=== PATIENT | female | born 1940 | race Caucasian/White ===

== ENCOUNTER → 2020-03-10 08:06 | Outpatient (CLI) | payer MEDICARE, SELFPAY ==
[2020-03-10 08:48] LABS: Add Manual Diff / Slide Review NO; Basophils Absolute Auto 100 /uL (0-100); Basophils Percent Auto 1.2 % (0-2); Eosinophils Absolute Auto 200 /uL (0-450); Hematocrit 38.6 % (36-46); Hemoglobin 13.1 g/dL (12.0-16.0); Lymphocytes Absolute Auto 2000 /uL (1100-4500); Lymphocytes Percent Auto 37.1 % (25-40); Mean Corpuscular HGB Conc 33.9 % (30-36); Mean Corpuscular Hemoglobin 32.4 PG (26-34); Mean Corpuscular Volume 95.7 fL (80-100); Monocytes Absolute Auto 400 /uL (0-900); Monocytes Percent Auto 7.8 % (3-14); Neutrophils Absolute Auto 2700 /uL (1500-7000); Neutrophils Percent Auto 50.9 % (50-75); Platelet Count 220 X10^3/uL (150-400); Red Blood Cell Count 4.03 X10^6/uL (4.0-5.2); Red Cell Distribution Width 13.3 % (11.6-14.8); White Blood Cell Count 5.4 X10^3/uL (4.5-11.0)
[2020-03-10 09:16] LABS: Alanine Aminotransferase 12 IU/L (<35); Albumin 4.3 g/dL (3.5-5.0); Albumin Globulin Ratio 1.4 (1.0-2.8); Alkaline Phosphatase 62 U/L (38-126); Aspartate Aminotransferase 24 IU/L (14-36); BUN Creatinine Ratio 15.5 (6-22); Bilirubin Total 0.6 mg/dL (0.2-1.3); Blood Urea Nitrogen 15 mg/dL (7-17); Calcium 9.6 mg/dL (8.4-10.2); Carbon Dioxide 24 mmol/L (22-32); Chloride 100 mmol/L (98-107); Cholesterol 271 mg/dL (140-199); Estimated Glomerular Filt Rate 55.5 mL/min (>60); Glucose 96 mg/dL (80-110); HDL Cholesterol 47 mg/dL (40-60); HEMOLYSIS < 15 (0-50); LDL Cholesterol Calculated 206 mg/dL (<100); Potassium 4.4 mmol/L (3.4-5.1); Sodium 132 mmol/L (137-145); Total Protein 7.3 g/dL (6.3-8.2); Triglycerides 92 mg/dL (35-150)
[2020-03-10 09:35] LABS: Free T3, Triiodothyronine Free 2.89 pg/mL (2.77-5.27); Free T4, Direct Thyroxine 1.62 ng/dL (0.78-2.19)
[2020-03-10 09:49] LABS: Thyroid Stimulating Hormone 0.761 uIU/mL (0.47-4.68)
== END ==
PROVIDERS: Family Provider Family Medicine; PCP Family Medicine; Referring Provider Family Medicine; Visit Provider Family Medicine
DX: E03.9 Hypothyroidism, unspecified (principal); E78.5 Hyperlipidemia, unspecified; I10 Essential (primary) hypertension
CPT/HCPCS: 36415; 80053; 80061; 84439; 84443; 84481; 85025

== ENCOUNTER → 2021-01-05 07:21 | Outpatient (CLI) | payer MEDICARE, SELFPAY ==
[2021-01-05 08:40] LABS: Alanine Aminotransferase 18 IU/L (<35); Albumin 4.1 g/dL (3.5-5.0); Albumin Globulin Ratio 1.3 (1.0-2.8); Alkaline Phosphatase 64 U/L (38-126); Aspartate Aminotransferase 28 IU/L (14-36); BUN Creatinine Ratio 15.3 (6-22); Bilirubin Total 0.5 mg/dL (0.2-1.3); Blood Urea Nitrogen 13 mg/dL (7-17); Calcium 9.6 mg/dL (8.4-10.2); Carbon Dioxide 23 mmol/L (22-32); Chloride 102 mmol/L (98-107); Cholesterol 194 mg/dL (140-199); Estimated Glomerular Filt Rate > 60.0 mL/min (>60); Globulin 3.2 g/dL (1.7-4.1); Glucose 103 mg/dL (80-110); HDL Cholesterol 51 mg/dL (40-60); HEMOLYSIS < 15 (0-50); LDL Cholesterol Calculated 125 mg/dL (<100); Potassium 4.3 mmol/L (3.4-5.1); Sodium 133 mmol/L (137-145); Total Protein 7.3 g/dL (6.3-8.2); Triglycerides 89 mg/dL (35-150)
[2021-01-05 09:21] LABS: TSH w/ Reflex to FT4 1.56 uIU/mL (0.47-4.68)
== END ==
PROVIDERS: Family Provider Family Medicine; PCP Family Medicine; Referring Provider Family Medicine; Visit Provider Family Medicine
DX: E03.9 Hypothyroidism, unspecified (principal); E78.5 Hyperlipidemia, unspecified; I10 Essential (primary) hypertension
CPT/HCPCS: 36415; 80053; 80061; 84443

== ENCOUNTER → 2021-03-02 14:53 | Outpatient (CLI) | payer MEDICARE, SELFPAY ==
--- NOTE | 2021-03-02 14:54 | DI.ECHO.S_ITS ---
[facility] +---------+ : : [address] : : : : [id number] : : : : Phone: [phone]+ Echocardiogram Report + + :Name: ABBEY GAGNON Study Date: 03/02/2021 Height: 63.5 in: :[facility] ReadingLocation: Weight: 155 lb : : Gender: Female BSA: 1.7 m2 : :: 1940 Age: 81 yrs BP: 120/80 mmHg: :Reason For Study: MURMUR : :Ordering Physician: YONY, : :ASHELY Performed By: Adali Ziegler : :Referring: ASHELY BHAKTA : + + Interpretation Summary 1) Normal left ventricular thickness, size, wall motion, and systolic function (EF 55-60%). 2) Normal right ventricular size and function. 3) There is mild aortic stenosis (valve area 12mmHg, valve area 1.8cm2). 4) Compared to the Echo done 03/13/2013, mild aortic stenosis is present on this study. Procedure: A two-dimensional transthoracic echocardiogram with color flow and Doppler was performed. The study quality was technically adequate. Comparison is made with the echocardiogram of 03/13/2013. The patient was in sinus rhythm with heart rates between 62-70 bpm during the exam. Left Ventricle: The left ventricle is normal in size and wall thickness. The ejection fraction is estimated to be 55-60%. Diastolic parameters suggest probable normal left ventricular diastolic function and normal filling pressures. Right Ventricle: The right ventricle is normal in size and function. Atria: The left atrial size is normal. Right atrial size is normal. There is no Doppler evidence for an interatrial shunt. The atrial septum is aneurysmal. Mitral Valve: There is mild mitral annular calcification. The mitral valve leaflets appear borderline thickened, but open well. There is mild mitral regurgitation. Aortic Valve: The aortic valve is trileaflet. The aortic valve is mildly calcified. There is mild aortic stenosis. The peak aortic velocity is 2.4 m/sec. The aortic valve mean gradient is 12 mmHg. The calculated aortic valve area is 1.8 cm2. No aortic regurgitation is present. Tricuspid Valve: The tricuspid valve is normal in structure and function. There is mild tricuspid regurgitation. Pulmonary artery pressures cannot be estimated because of the lack of a measurable TR jet velocity but the IVC suggests a CVP of around 3 mmHg. Pulmonic Valve: The pulmonic valve leaflets are thin and pliable; valve motion is normal. There is no pulmonic valvular regurgitation. Great Vessels: The aortic root is normal size. The ascending aorta is at the upper limits of normal in size. The IVC is of normal diameter and collapses greater than 50% with a sniff. This suggests a low right atrial pressure of 3 mm Hg. Pericardium/ Pleura There is no pericardial effusion. There is no pleural effusion. MMode/2D Measurements & Calculations LVIDd: 5.0 cm LVOT diam: 2.4 cm LVIDs: 3.2 cm Ao root diam: 3.1 cm FS: 35.9 % asc Aorta Diam: 3.4 cm IVSd: 0.81 cm Ao Arch Diam (Prox Trans): 2.4 cm LVPWd: 0.92 cm LV iverson. diameter/BSA (cm/m^2): 2.9 LV sys. diameter/BSA (cm/m^2): 1.8 LA A2 area: 18.3 cm2 RA long axis: 4.8 cm LA A4 area: 14.1 cm2 RA area: 13.2 cm2 LA length (vol): 5.0 cm RA vol: 30.7 ml LA vol: 43.5 ml RA : 17.6 ml/m2 LA vol index: 24.9 ml/m2 IVC diam: 0.69 cm RVD1 (basal): 3.2 cm TAPSE: 2.1 cm Doppler Measurements & Calculations Ao V2 max: 239.4 cm/sec LVOT Max Nader: 100.1 cm/sec Ao V2 mean: 160.8 cm/sec LV V1 max P.0 mmHg Ao max P.9 mmHg LV V1 VTI: 22.7 cm Ao mean P.2 mmHg THERESA(I,D): 2.0 cm2 Ao V2 VTI: 50.6 cm THERESA(V,D): 1.8 cm2 sev ratio: 0.45 THERESA indexed to BSA (cm^2/m^2): 1.1 MV E max nader: 54.2 cm/sec PA V2 max: 102.5 cm/sec MV A max nader: 82.4 cm/sec PA V2 mean: 66.8 cm/sec MV E/A: 0.66 PA mean P.0 mmHg Med Peak E' Nader: 5.1 cm/sec PA pr(Accel): 34.5 mmHg E/E' med: 10.6 Lat Peak E' Nader: 8.6 cm/sec E/E' lat: 6.3 E/e' average: 8.4 MV dec time: 0.27 sec SV(OT): 100.0 ml Reading Physician:05:00 PM
== END ==
PROVIDERS: Family Provider Family Medicine; PCP Family Medicine; Referring Provider Family Medicine; Visit Provider Family Medicine
DX: I08.3 Combined rheumatic disorders of mitral, aortic and tricuspid valves (principal); R01.1 Cardiac murmur, unspecified
CPT/HCPCS: 93306

== ENCOUNTER → 2021-04-29 13:06 | Outpatient (CLI) | payer MEDICARE, SELFPAY ==
--- NOTE | 2021-04-29 | DI.MRI.S_ITS ---
PROCEDURE: MR KNEE RT WO CON INDICATIONS: Pain in right knee. No history of prior surgery. TECHNIQUE: Noncontrast sagittal PD fast spin echo and T2 fast spin echo with fat saturation, sagittal 3-D FLASH with fat saturation; coronal T1 spin echo and PD fast spin echo with fat saturation, and axial PD fast spin echo with fat saturation through the knee. COMPARISON: [facility], MR, KNEE RT W/O CONTRAST, 02/25/2010, 10:32. [facility], CR, XR KNEE 4+ VIEWS RIGHT, 12/16/2020, 14:56. FINDINGS: Image quality: Excellent. Menisci: There is linear horizontal high signal intensity within the anterior horn, body, and posterior horn medial meniscus, demonstrating inferior articular surface extension, indicating horizontal tearing. Lateral extrusion of the lateral meniscus is present. There is increased amorphous and linear oblique high signal intensity within the anterior horn, body, and posterior horn lateral meniscus, demonstrating inferior articular surface extension, indicating progressive complex tearing. Cruciate ligaments: The anterior and posterior cruciate ligaments appear intact. Medial structures: The medial collateral ligament appears intact. Visualized portions of the pes anserinus tendons appear normal. No abnormal bursal fluid. Lateral structures: The lateral collateral ligament demonstrates moderate T2 signal elevation at its femoral origin. The long and short heads of the biceps femoris tendon appear intact. The popliteus tendon appears normal. Iliotibial band appears normal. Anterior structures: The quadriceps and patellar tendons appear intact. Patellar alignment is normal. No femoral trochlear dysplasia or ventral trochlear prominence. No edema in the infrapatellar fat pad. Bones and cartilage: No bone marrow contusions or fractures. Moderate tricompartmental periarticular osteophyte formation is present. Moderate articular cartilage loss diffusely overlies the weight-bearing aspects of the medial femoral condyle and medial tibial plateau. Severe articular cartilage loss diffusely overlies the weight-bearing aspects of the lateral femoral condyle and lateral tibial plateau. Joint space: There is a moderate knee joint effusion and a trace Burger's cyst. There are multiple intra-articular loose bodies, largest of which is in the anterior central aspect of the knee joint, measuring roughly 30 mm transverse, as before. Normal appearing synovial plicae are incidentally noted. IMPRESSION: 1. Tricompartmental osteoarthritis with associated articular cartilage loss. 2. Medial and lateral meniscal tearing as described above. 3. Knee joint effusion and intra-articular loose bodies. Dominant synovial mass is present within the anterior central knee joint compartment, as before, consistent with synovitis. Differential considerations include rheumatoid arthritis, pigmented villonodular synovitis and synovial tumors. 4. Partial thickness lateral collateral ligament tear. Dictated by: Catrachita Parker M.D. on 04/29/2021 at 14:05 Approved by: Catrachita Parker M.D. on 04/29/2021 at 14:11
== END ==
PROVIDERS: Family Provider Family Medicine; PCP Family Medicine; Referring Provider Orthopaedic Surgery; Visit Provider Orthopaedic Surgery
DX: S83.281A Other tear of lateral meniscus, current injury, right knee, initial encounter (principal); S83.241A Other tear of medial meniscus, current injury, right knee, initial encounter; M25.561 Pain in right knee
CPT/HCPCS: 73721

== ENCOUNTER → 2021-05-31 13:50 | Outpatient (CLI) | payer MEDICARE, SELFPAY ==
[2021-05-31 14:37] LABS: Add Manual Diff / Slide Review NO; Basophils Absolute Auto 100 /uL (0-100); Eosinophils Absolute Auto 100 /uL (0-450); Eosinophils Percent Auto 1.9 % (2-4); Hematocrit 37.9 % (36-46); Hemoglobin 12.8 g/dL (12.0-16.0); Lymphocytes Absolute Auto 2000 /uL (1100-4500); Lymphocytes Percent Auto 29.6 % (25-40); Mean Corpuscular HGB Conc 33.7 % (30-36); Mean Corpuscular Hemoglobin 32.1 PG (26-34); Mean Corpuscular Volume 95.4 fL (80-100); Monocytes Absolute Auto 600 /uL (0-900); Monocytes Percent Auto 8.6 % (3-14); Neutrophils Absolute Auto 4100 /uL (1500-7000); Neutrophils Percent Auto 58.9 % (50-75); Platelet Count 249 X10^3/uL (150-400); Red Blood Cell Count 3.97 X10^6/uL (4.0-5.2); Red Cell Distribution Width 13.7 % (11.6-14.8); White Blood Cell Count 6.9 X10^3/uL (4.5-11.0)
[2021-05-31 15:07] LABS: BUN Creatinine Ratio 19.1 (6-22); Blood Urea Nitrogen 18 mg/dL (7-17); Calcium 9.5 mg/dL (8.4-10.2); Carbon Dioxide 25 mmol/L (22-32); Chloride 101 mmol/L (98-107); Estimated Glomerular Filt Rate 57.4 mL/min (>60); Glucose 80 mg/dL (80-110); HEMOLYSIS < 15 (0-50); Potassium 4.8 mmol/L (3.4-5.1); Sodium 136 mmol/L (137-145)
[2021-05-31 15:58] LABS: Appearance Urine UA SL CLOUDY; Bilirubin Urine UA NEGATIVE (NEGATIVE); Color Urine UA YELLOW; Glucose Urine UA NEGATIVE (Negative); Ketones Urine UA NEGATIVE (NEGATIVE); Leukocyte Esterase Urine UA 1+ (NEGATIVE); Nitrite Urine UA POSITIVE (Negative); Occult Blood Urine UA NEGATIVE (Negative); Protein Urine UA NEGATIVE (Negative); Urobilinogen Urine UA 0.2 E.U./dL (0.2); pH Urine UA 5.5 (4.5-8.0)
[2021-05-31 16:05] LABS: Amorphous Sediment Urine 1+; Bacteria Urine Many (>30); RBC Urine None Seen (0-5/HPF); Squamous Epithelial Cell Urine 1-5 /HPF (0-5/HPF); WBC Urine 10-30/HPF (0-5/HPF)
[2021-05-31 16:06] LABS: Culture Indicated Urine Specimen Cultured; Mucus Urine 1+ (Negative)
[2021-05-31 18:42] LABS: Hemoglobin A1C% w Est Avg Glu 5.2 % (4.0-6.0)
== END ==
PROVIDERS: Family Provider Family Medicine; PCP Family Medicine; Referring Provider Orthopaedic Surgery; Visit Provider Orthopaedic Surgery
DX: Z01.818 Encounter for other preprocedural examination (principal); R73.9 Hyperglycemia, unspecified; Z01.812 Encounter for preprocedural laboratory examination; N39.0 Urinary tract infection, site not specified
CPT/HCPCS: 36415; 80048; 81001; 83036; 85025; 87077; 87086; 87186; 93005

== ENCOUNTER → 2021-06-28 16:07 | Outpatient (CLI) | payer MEDICARE, SELFPAY ==
[2021-06-28 18:01] LABS: COVID19 -Nasal RAPID Negative (Negative)
== END ==
PROVIDERS: Family Provider Family Medicine; PCP Family Medicine; Visit Provider Nurse Practitioner Family
DX: Z20.822 Contact with and (suspected) exposure to COVID-19 (principal)
CPT/HCPCS: 87635

== ENCOUNTER 2021-06-29 11:49 | Day surgery (SDC) | payer MEDICARE, SELFPAY ==
[2021-06-21 13:37] VITALS: BMI 26.7
[2021-06-29] VITALS (14 sets, daily range): BP systolic 92–149; BP diastolic 47–80; PULSE 57–104; RESP 14–18; TEMP 36.2–37.1; O2SAT 96–100; BMI 26.7
[2021-06-29] MEDS: LACTATED RINGERS 1,000 ML 42 ML IV ×2 (13:12→14:13)
--- NOTE | 2021-06-29 13:14 | DI.RAD.S_ITS ---
PROCEDURE: XR KNEE RT 1TO2V INDICATIONS: postop prosthesis placement TECHNIQUE: 3 views of the knee were acquired. COMPARISON: None. FINDINGS: Bones: Expected post operative alignment of right total knee arthroplasty. Hardware appears intact. No acute fracture. Soft tissues: Expected postsurgical changes. IMPRESSION: Expected post operative appearance. Dictated by: Lance Hong M.D. on 06/30/2021 at 10:17 Approved by: Lance Hong M.D. on 06/30/2021 at 10:18
[2021-06-29] MEDS: ACETAMINOPHEN 325 MG TABLET 975 MG PO (13:23)
[2021-06-29] MEDS: PREGABALIN 75 MG CAPSULE PO (13:24)
[2021-06-29] MEDS: CELECOXIB 200 MG CAPSULE PO (13:24)
[2021-06-29] MEDS: VANCOMYCIN 1,000 MG/200 ML PIGGYBACK 200 MG IV (14:10)
--- NOTE | 2021-06-29 14:31 | PM.PREOP ---
Pre-operative Note COVID-19 COVID-19 status: Negative Interval Note History & Physical reviewed/Exam performed by Physician: Yes Changes to H&P: No H&P completed within 30 days and has changed as indicated here:: recent cat bite, not too severe, recent bacturia, no symptoms
--- NOTE | 2021-06-29 14:33 | PM.OP.1 ---
Operative Date/Time/Diagnoses Date of procedure: 06/29/21 Time of procedure: 15:00 Pre-op diagnosis: right knee OA Post-op diagnosis: same Procedure & Clinicians Procedure: right total knee arthroplasty Same procedure as scheduled: Yes Indications: The patient has had progressively worsening right knee pain with radiographic changes consistent with arthritis. Non-operative management has failed and the patient has requested total knee replacement. The risks, benefits and alternatives to surgery were discussed with the patient prior to proceeding. Risks discussed included, but were not limited to, failure to relieve pain, stiffness, infection, nerve damage, deep venous thrombosis, pulmonary embolism, stroke, coma, heart attack, permanent paralysis and , as well as the potential need for eventual revision of the prosthetic. Surgeon: Sabrina King Motion Picture Photographer: Annette Regan Anesthesia Type: General and Spinal Operative Notes Findings: Severe right knee osteoarthritis, good stability Closure Type: primary Specimen(s): none sent Prosthetic devices, grafts, tissues, transplants, or devices: [employer]hew Emelyney BCS 2 size 5 femur, size 3 tibia, +10 poly, 32 x 7.5 mm patella Applied: drain(s) Estimated Blood Loss (mL): 250 Blood products transfused: none Tourniquet time (min): 65 Procedure in detail: The patient was seen in the pre-operative area, where the patient identified the right knee as the operative site and this was marked with my initials. The patient received pre-operative antibiotics, and was taken to the operating room and placed on the operative table in the supine position. After satisfactory anesthesia, a multimedia production assistant out was performed. The right leg was encircled with a tourniquet about the proximal thigh, and the leg was prepared from the toes to the tourniquet with ChloroPrep in the usual fashion and draped through sterile drapes. The leg was elevated and exsanguinated with Eschmark bandage and the tourniquet inflated to [250] mmHg pressure. The knee was approached through an approximately 18 cm incision centered over the patella and carried into the knee through a medial parapatellar arthrotomy. A portion of the medial and lateral meniscus was resected. Soft tissue was carefully mobilized around the patella the patella was measured with a caliper. Bone was resected from the patella and the patellar height was reconstituted with up an appropriate sized patellar component. A cover was then placed on the patella. A small amount of additional medial and lateral meniscus was resected. The visionare guide fit well to the distal femur. It looked like an appropriate distal femoral cut and the cut was made without difficulty. The rotation was assessed and the appropriate size femoral guide was placed on the distal femur and finishing cuts were made. There was no evidence of notching. The anterior, posterior and chamfer cuts were then made. The posterior osteophytes and soft tissues were then removed. The posterior capsule was injected with part of a mixture of 60 ml 0.25% Marcaine mixed with 20 ml Exparel for post operative pain control. The remainder of this mixture was injected into the capsule and subcutaneous tissues during cement curing. The tibia was prepared and the visionaire guide fit well to the distal tibia. The rotation was assessed. The patient was placed in extension residual medial and lateral meniscus as well as any residual bone was carefully resected. [No] additional tibia was resected. Hemostasis was achieved especially posteriorly. Additional local was injected into the posterior capsule. The extension gap was assessed and additional releases for gap balancing were performed as necessary. It was checked with the gap legal summer intern. The femoral component was trial was placed and the notch was finished. Trial tibial and femoral components were then placed and the knee placed through a range of motion. Range of motion was [0-130], with good stability throughout the range. The trials were then removed, and the tibia was finished. The bone was prepared with pulsatile lavage, and dried with a sponge. Cement was applied and the final prosthetics placed. Excess cement was removed during and after cement curing. A brief Betadine soak was performed. After confirming there was no extruded cement posteriorly, the final tibial insert was placed. The knee was copiously irrigated and the tourniquet deflated. Hemostasis was obtained with the Bovie cautery. A drain was placed and brought out superolaterally. The capsule was closed with interrupted Vicrylsuture. The subcutaneous layer was closed with barbed sutures, and the skin with a running 3-0 V-Lock suture and Surgical glue. An Aquacel Ag dressing was applied and the patient was taken to recovery having tolerated the procedure well. Complications: none Post-operative Condition: stable Disposition: Acute Care Plan for aftercare: The patient will be maintained on a standard total knee replacement protocol with weight bearing as tolerated. The patient will receive aspirin and sequential compression devices for DVT prophylaxis. The patient will be discharged home when safe for the home environment.
[2021-06-29] MEDS: CEFAZOLIN 2 GM/20 ML SYRINGE IV ×2 (15:25→23:24)
[2021-06-29] MEDS: TRANEXAMIC ACID 1,000 MG VIAL 1000 MG INJ ×2 (15:44→17:55)
--- NOTE | 2021-06-29 15:54 | SUR.OPER ---
Supine on padded OR bed. Pillow under head, arms secured on padded armboards <90 degree abduction. Safety belt across torso. Non-operative leg secured with tape over blanket over lower leg. Operative leg secured in DeMayo/Александр/Nathe positioner. Foam padded brace at thigh of operative leg.
[2021-06-29] MEDS: BUPIVACAINE 0.25% (PF) 60 ML, EPINEPHrine 0.3 MG INJ (16:33)
[2021-06-29] MEDS: BUPIVACAINE LIPOSOME 266 MG/20 ML VIAL INJ (16:33)
[2021-06-29] MEDS: SODIUM CHLORIDE IRRIG SOLUTION 250 ML, POVIDONE-IODINE SPONGE STICKS 1 APPLIC IRR (16:35)
--- NOTE | 2021-06-29 18:28 | SUR.PHASEI ---
1804-Meets criteria for transfer to room. Report to Nazario GARIBAY via phone and questions answered. vss. csm RLE -pink,2+ dp/PT pulses palbable. warm,adequte refill less than 3 secs each. spinal effect in place. no movement below L4 bilaterally. experell band on rt wrist. patient aa&ox4. vss. denies pain or nausea. dressing cdi rt knee. clamped hemovac. notified of room. 1809-off monitors to room. 1814-To room by bed. walker and 2 bags with patient. Care transitioned to Nazario GARIBAY in room. iv converted to saline lock.
[2021-06-29] MEDS: LACTATED RINGERS 1,000 ML 100 ML IV (18:42)
--- NOTE | 2021-06-29 19:18 | PC.NURSE ---
Pt arrived via PACU accompanied by SENIOR DIRECTOR CREATIVE SERVICES's. Pt alert and oriented follows commands. Offers no overt c/o pain or discomfort at present. Pt's Jesus attentive at bedside. Dressing to Right knee is an sobeida wrap with a hemovac. due to be unclamped at 19:30. IVF's at 100cc/hr. Good pedal pulses, moving toes and legs, L4 level sensation. Skin check done with Corrine GARIBAY. home for the night.
[2021-06-29] MEDS: MELATONIN 3 MG TABLET 6 MG PO (20:28)
[2021-06-29] MEDS: ASPIRIN EC 81 MG TABLET PO (20:28)
[2021-06-29] MEDS: ACETAMINOPHEN 325 MG TABLET 650 MG PO (20:28)
[2021-06-29] MEDS: DOCUSATE 100 MG CAPSULE PO (20:28)
[2021-06-29] MEDS: IBUPROFEN 400 MG TABLET PO (20:28)
[2021-06-30] MEDS: IBUPROFEN 400 MG TABLET PO ×3 (01:29→08:55)
[2021-06-30 04:00] VITALS: BP 126/76; PULSE 59; RESP 16; TEMP 36.3; O2SAT 97
[2021-06-30] MEDS: CEFAZOLIN 2 GM/20 ML SYRINGE IV (06:38)
[2021-06-30] MEDS: LEVOTHYROXINE 100 MCG TABLET PO (06:38)
--- NOTE | 2021-06-30 06:57 | PC.NURSE ---
Pt had approx 250 sanguinous drainage from hemovac. Denies pain. Numbness receding and now minimal, initially from from buttox to toes, improving. Patient alert and oriented. Denies any dizziness. Able to void on own.
[2021-06-30 07:25] LABS: Hematocrit 32.9 % (36-46); Hemoglobin 11.3 g/dL (12.0-16.0)
[2021-06-30] MEDS: FISH OIL 1,000 MG CAPSULE 1000 MG PO (08:55)
[2021-06-30] MEDS: ASPIRIN EC 81 MG TABLET PO (08:55)
[2021-06-30] MEDS: ACETAMINOPHEN 325 MG TABLET 650 MG PO (08:55)
[2021-06-30] MEDS: DOCUSATE 100 MG CAPSULE PO (08:56)
[2021-06-30] MEDS: CHOLECALCIFEROL (VITAMIN D3) 1,000 UNIT TABLET 2000 UNIT PO (08:56)
--- NOTE | 2021-06-30 08:57 | CM.DPC ---
DCP: Case received, EMR reviewed and met with patient. Introduced self and role. Was able to obtain information regarding patient's baseline activity status prior to hospitalization. DCP assessment completed with information currently available. Patient is a 81 year old female who admitted yesterday morning to the care of the orthopedic team. PCP: Dr. Daily. Payer: confirmed: Medicare/AARP. Patient came to the hospital via private vehicle for a surgical procedure. Patient had right total knee arthroplasty. Patient has history of osteoarthritis. Met with patient in her room. She is alert and oriented, pleasant. She resides in [place] with her spouse, Jesus. At her baseline, she has a cane to use if needed. She drives, and is independent. She confirmed that her spouse will be able to assist her when she goes home. She is set up for outpatient P.T. at [facility]. P: Patient has discharge orders for home today. She will need to work with P.T. again to get cleared before she goes home, possible caregiver training with spouse. Esther Hamilton RN/Receptionist Doctor'S Office Discharge Planning/Care Management Advanced directive, confirm from CLIN[facility] Start: 06/29/21 18:35 Freq: Q24H Status: Active Protocol: Document 06/29/21 18:35 MW (Rec: 06/30/21 00:33 MW [id number]) Advance Directive, confirm on record Time 19:00 Person contacted pt Copy received No CM Discharge Assessment Start: 06/30/21 08:56 Freq: Status: Active Protocol: Document 06/30/21 08:56 (Rec: 06/30/21 08:57 [id number]) Discharge Planning Assessment Assigned Mail Carrier Esther Hamilton RN/Receptionist Doctor'S Office Advance Directives? Yes Advance Directives on File Yes History Provided By Patient,Medical Record Prior Living Arrangements House Household Members spouse Type of transporation used prior to Drives own vehicle admit Independent with ADL's Yes Is patient alert and oriented? Yes DME Already Rented / Owned Cane Patient/Family Preference OP PT Therapy Barriers to Discharge No Referrals Initiated None needed Whiteboard Updated in Patient Room with Yes name and ext. # of Mail Carrier Review Status In Process Next Review Type Continued Stay Review Pre-Anesthesia Assessment Start: 06/21/21 13:37 Freq: Status: Active Protocol: Document 06/21/21 13:37 CAB (Rec: 06/21/21 14:31 [facility] [id number]) Pre-Anesthesia Assessment PAC Comment UA on 05/31/21 - E.Coli, completed ABX Preferred Name Risa Patient Information Reviewed Via Phone Assessment Assessment Completed With Patient Diagnostic Results BMP/CMP,CBC,EKG,Urinalysis Comment Labs/EKG @ 05/31/21, COVID screen @ 06/28/21 Primary Care Provider Nicole Daily Seen Specialist in Last 12 Months Yes Specialist Seen Oncologist,Orthopedist Primary Language Setswana Metal Casket Assembler Required No Height 5 ft 4 in Weight 156 lb Body Mass Index (BMI) 26.7 Hearing Ability Hard of Hearing Visual Assist Glasses Comment 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, reads lips Hx Anesthesia Reactions No: Pt would like a spinal Hx Family Anesthesia Reaction No Hx Malignant Hyperthermia No Hx Blood Transfusions Yes: Multiple 2011 Hx Blood Transfusion Reaction Yes: Hives Anesthesia Review Requested No alcohol intake current alcohol intake frequency holidays/special occasions only Smoking Status Former smoker Substance Use Type does not use Pain Present Pain Reported Musculoskeletal Symptoms Abnormal Gait,Difficulty Walking,Joint Pain History of Falling (Recent or History of No ) Patient is completely paralyzed or No completely immobile Mental Status Oriented to own ability Is patient on oxygen? No Does patient have MOSER/SOB Yes: MOSER if climbing stairs quickly Hx Sleep Apnea Yes: Not using CPAP Currently Taking a Beta [place] No Can You Climb a Flight of Stairs Without No SOB Hx Chest Pain No Hx SOB Yes: MOSER if climbing stairs quickly Hx Syncope or Dizziness Yes: Dizziness, vertigo Anti-Coagulant Therapy No Has a Cloth Washer No Cardiac Testing Echo @ 03/02/21 for murmur Hx Pacemaker/ICD No Pacemaker Rep Required? No Cardiac Clearance Received Not Applicable Diet Type At Home Regular dysphagia No Gastrointestinal Symptoms Bloating Bladder Pattern Incontinent, Stress Urinary Catheter Present No Hx Urinary Self Catheterization No Diabetes No HgbA1C 5.2 Date 05/31/21 Patient No Lactating No Hx Drug Resistant Organism No Presence of External or Internal Medical Yes: Bilat IOLs Devices Have you had any close contact with No someone diagnosed with COVID-19? Received a COVID vaccine? Yes: + booster Received all doses? Yes Marital Status Lives With spouse Prior Living Arrangements House Number of Floors (Floors) One Floor Support System Spouse Does the Patient Have Assistance After Yes Surgery Patient Discharge Plan Description Return Home Comment Pt advised overnight length of stay per surgeon Feels Safe in Current Environment Yes Been Physically Hurt or Threatened By a No Person in Current Environment Do you have thoughts of harming yourself None or others? Are you currently considering suicide? No Do you have a plan to hurt yourself or No Plan others? Do You Have Any Spiritual Beliefs That No May Affect Your HC Choices? Do You Have Any Cultural Practices That No May Affect Your HC Choices? Who Can We Speak to About Patient's Care Family, friends Identifying Code for Release of Patient Declines to issue Information Health Care Proxy/Next of Kin Jesus () Health Care Proxy Emergency Contact Name Jesus () Emergency Contact Advance Directives? Yes Advance Directives on File Yes Power of Call Person No PAC Instructions Do not shave/clip surgical site,Durable medical equipment ,Medications to take/avoid, Nasal antibiotic,No ETOH/ petroleum product on skin DOS, NPO,Sensory aids,Sturdy shoes/ comfortable clothes,Do not bring valuables and remove jewelry
[2021-06-30 08:59] VITALS: BP 119/69; PULSE 59
--- NOTE | 2021-06-30 09:45 | PT.IIE ---
Current Diagnoses Unilateral primary osteoarthritis, right knee (06/29/21) Surgery Performed Operation Date: 06/29/21 14:15 Actual Procedures p Total Knee Arthroplasty(Right) - Sabrina King MD Surgical History (Last Reviewed 06/29/21 @ 12:30 by Jj Alas, LANI) Anesthesia Cataracts, bilateral Medical History (Last Reviewed 06/29/21 @ 12:30 by Jj Alas, LANI) Allergic rhinitis (Unknown) Chicken pox Dizziness Hearing loss Hip pain (~1998) Hyperlipidemia Hypertension (~2016) Hypothyroidism (~1988) Insomnia, persistent (~2015) Low testosterone (~2009) Multiple myeloma in remission (~2013) Obstructive sleep apnea of adult (~2017) Ocular migraine (~1990) Osteoarthritis (~2018) Unilateral post-traumatic osteoarthritis, right knee (~2017) Urge incontinence (~2016) Vision disorder Physical Therapy Inpatient Evaluation/Re-Eval M1 PT/OT-IP Prior Functional Status Start: 06/30/21 12:06 Freq: NEEDED Status: Active Protocol: Document 06/30/21 09:45 AB (Rec: 06/30/21 12:43 AB [id number]) Medical Review Prior Functional Status Medical History Reviewed Yes Communication able to make needs known Mobility and Gait pt stated that she is independent with all mobilities and ambulation without AD but occasionally uses a SPC Social History Household Members spouse Living Arrangements House Number of Floors (Floors) One Floor Number of Stairs To Enter/Railing? 2 steps to enter with L rail ascending Home Environment Standard Height Toilet,Walk in Shower Home Equipment Front Wheel Walker,Straight Cane,Raised Toilet Seat Without Armrests,Shower Seat with Backrest,Hand Held Shower ,Grab Bars In Shower M2 PT-IP Current Condition Start: 06/30/21 12:06 Freq: NEEDED Status: Active Protocol: Document 06/30/21 09:45 AB (Rec: 06/30/21 12:43 AB [id number]) Physical Therapy Current Condition Current Condition Evaluation Date 06/30/21 Treatment Diagnosis s/p R TKA; difficulty in walking Onset Date 06/29/21 M3 PT-IP Subjective Start: 06/30/21 12:06 Freq: NEEDED Status: Active Protocol: Document 06/30/21 09:45 AB (Rec: 06/30/21 12:43 AB [email or web address]) Subjective Physical Therapy Visit Type Type Initial Evaluation Visit Start Time 09:45 Visit Stop Time 10:26 Total Visit Minutes 41 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 Physical Therapy Visit Comments Patient Comments able to make needs known Therapy Pain Assessment Pain When Pain Assessed During Mobility Pain Present Pain Present Pain Reported Location Right Knee Intensity 4 Scale Used Numeric (0 - 10) Pain Management Techniques Apply Cold,Elevation, Modification of Treatment,Re- positioning,Timing of Activity with Medications M4 PT-IP Mobility and Gait Start: 06/30/21 12:06 Freq: NEEDED Status: Active Protocol: Document 06/30/21 09:45 (Rec: 06/30/21 12:43 [email or web address]) PT-Bed Mobility Assessment Supine to Sit Supine to Sit Standby Assistance Sit to Supine Sit to Supine Standby Assistance PT-Transfer Assessment Sit to and From Stand Sit to and from Stand Standby Assistance Equipment Transfer Assistive Device Gait Belt,Front Wheeled Walker Orthotic/Prosthetic Devices or Brace: No Transfers Transfer Destination Chair Transfer Technique ambulated using FWW Transfer Ability Level of Assist Standby Assistance,Contact Guard Assistance Comments Mobility Comments pt completed supine to sit SBA . able to sit on EOB SBA. completed sit to stand CGA and ambulated in room using FWW ~ 50 ft CGA. pt sat on chair and rested. agreed to do stairs. completed sit to stand SBA and ambulated in the hallway using FWW ~ 150 ft SBA to CGA. completed up/down stepsi using L rail SBA to CGA and initially requiring cues to complete but able to complete without cues on 2nd set. pt ambulated back to her room using FWW SBA 150 ft. sat on chair. positioned on chair. call light and table placed within reach. Gait Assessment Gait Gait Assistance Required: Standby Assistance,Contact Guard Assist Distance (Feet) 150 Able to Maintain Weight Bearing Status Yes During Gait Assistive Devices Assistive Device Gait Belt,Front Wheeled Walker Orthotic/Prosthetic Devices or Brace: No Gait Deviations General Gait Pattern Decreased Stride Length, Decreased Feet Clearance Factors Limiting Gait Function Factors Limiting Gait Function Decreased Activity Tolerance, Decreased Strength,Limited Range of Motion,Pain,Poor Balance Stair Climbing Assessment Evaluation Level of Assist On Stairs Standby Assistance,Contact Guard Assistance,1 Person Assistance Devices Stair Climbing Assistive Devices Left Railing Technique/Endurance Stair Climbing Direction Ascend and Descend Stair Climbing Technique Step to Step Number of Steps Climbed 3 Query Text: Stair Climbing Set # Repetitions (reps) 2 PT-Balance Assessment Sitting Balance and Reactions Static Sitting Balance Ability Good Dynamic Sitting Balance Ability Good Standing Balance and Reactions Static Standing Balance Ability Fair Dynamic Standing Balance Ability Fair Device Used FWW M5 PT-IP Objective Assessments Start: 06/30/21 12:06 Freq: NEEDED Status: Active Protocol: Document 06/30/21 09:45 AB (Rec: 06/30/21 12:43 AB [id number]) Orientation Orientation/Cognition Level of Alertness Alert Orientation Name,Age,Birthday,Month,Date, Year,Day of Week,Place, Situation Language Function Ability No Deficits Noted Safety Awareness Understands Safety Issues Memory Description No Deficits Noted Gross Range of Motion Lower Extremity ROM Impairments R knee flexion: ~ 100 deg R knee extension: 10 deg less to 0 Strength Lower Extremity Strength Assessment Right Impaired Hip 4+/5 Knee 4-/5 Coordination Assessment Gross Coordination Gross Coordination WNL Muscle Tone Muscle Tone WNL Yes M6 PT-IP Treatment Start: 06/30/21 12:06 Freq: NEEDED Status: Active Protocol: Document 06/30/21 09:45 AB (Rec: 06/30/21 12:43 AB [id number]) Physical Therapy Treatment Education Education Provided Precautions,Weight Bearing Status,Post-Op Packet,Safety M7 PT-IP Assessment and Plan Start: 06/30/21 12:06 Freq: NEEDED Status: Active Protocol: Document 06/30/21 09:45 AB (Rec: 06/30/21 12:43 AB [id number]) PT Summary Assessment and Plan Potential Rehabilitation Potential Good Status of Condition at Evaluation Stable Summary Impairments Pain,ROM,Strength,Balance, Coordination,Sensation,Tone, Cognition,Bed Mobility, Transfers,Gait,Activity Tolerance Assessment Summary pt requiring SBA to occasionally CGA with mobility and plans to go home with spouse to assist her. pt stated that she has outpt PT scheduled. pt may go home when medically stable. Goals Bed Mobility Goal Independent Transfer Goal Independent,Front Wheeled Walker Gait Goal Independent,Front Wheel Walker Gait Distance 250 Other Goals up/down 2 steps L rail ascendign mod I Days to Meet Goals 3 Frequency of Treatment Frequency Of Treatment Twice a Day Treatment Plan Physical Therapy Treatment Plan Bed Mobility Training,Transfer Training,Gait Training, Therapeutic Exercise,Balance Retraining,Post Op Education, Discharge Planning,Hot or Cold Pack,Neuromuscular Re-ed, Coordination Retraining,Manual Therapy Weight Bearing Status Weight Bearing Status Weight Bear as Tolerated Allowed Weight Bearing Amount (enter % RLE WBAT or #) (%) Recommendations To Nursing Amount of Assist Needed 1 Person Assist Discharge Recommendations PT Discharge Recommendations Home with Assistance, Outpatient PT Transportation Needs at Discharge Private Vehicle
[2021-06-30 10:01] VITALS: BP 148/82; PULSE 60; RESP 17; O2SAT 100
--- NOTE | 2021-06-30 10:53 | P.DS_ITS ---
History of Present Illness History of Present Illness Date Patient Seen: 06/30/21 Time Patient Seen: 10:54 Chief complaint: Knee pain Narrative: Patient is having minimal knee pain. Denies fever or chills. No nausea or vomiting. Otherwise without complaints. Discharge Providers Provider Discharge Date: 06/30/21 Primary care physician: Nicole Daily DO Consults: 06/29/21 13:14 Consult to Anesthesiology Routine Comment: Consulting Provider: Anesthesiologist Reason for consultation: Regional block for post operative pain control 06/29/21 17:33 Consult to Physician Routine Comment: consult to primary care provider for followup Consulting Provider: Sabrina King Reason for consultation: Positive STOP BANG, management of obstructive sleep apnea Has provider been notified: Yes 06/29/21 18:21 Consult to Discharge Planning Routine Comment: Consult to Physical Therapy Evaluate & Treat Comment: Physician Instructions: postop TKA protocol Consult to Respiratory Therapy Evaluate & Treat Comment: Physician Instructions: Evaluate and treat Discharge provider: Juan Hernández PA-C Summary Hospital Course Discharge Diagnosis: Right knee osteoarthritis Hospital Course: Procedure: right total knee arthroplasty Same procedure as scheduled: Yes Indications: The patient has had progressively worsening right knee pain with radiographic changes consistent with arthritis. Non-operative management has failed and the patient has requested total knee replacement. The risks, benefits and alternatives to surgery were discussed with the patient prior to proceeding. Risks discussed included, but were not limited to, failure to relieve pain, stiffness, infection, nerve damage, deep venous thrombosis, pulmonary embolism, stroke, coma, heart attack, permanent paralysis and , as well as the potential need for eventual revision of the prosthetic. Surgeon: Sabrina King Public Health Policy Analyst: Annette Regan Anesthesia Type: General and Spinal Operative Notes Findings: Severe right knee osteoarthritis, good stability Closure Type: primary Specimen(s): none sent Prosthetic devices, grafts, tissues, transplants, or devices: [employer] BCS 2 size 5 femur, size 3 tibia, +10 poly, 32 x 7.5 mm patella Applied: drain(s) Estimated Blood Loss (mL): 250 Blood products transfused: none Tourniquet time (min): 65 Patient admitted to the hospital for the above-mentioned procedure. Patient taken to operating room underwent right total knee arthroplasty on June 29, 2021. Patient back in her room recovering well as in stable condition. Exam Vital Signs (past 8 hours): - 06/30/21 04:00 06/30/21 08:59 06/30/21 10:01 Temperature 97.4 F L Pulse Rate 59 L 59 L 60 Respiratory Rate 16 17 Blood Pressure 126/76 119/69 148/82 H Pulse Oximetry 97 100 Oxygen Delivery Method Room Air Oxygen Flow Rate 0 Narrative Exam Narrative: Patient resting comfortably in bed in no apparent distress. Dressing is Clean, dry, intact.. Motor functions intact bilateral lower extremities. Sensation grossly intact to light touch bilateral lower extremities. Objective Labs Result Diagrams: 06/30/21 06:50 Labs: Laboratory Results - last 24 hr 06/30/21 06:50 Hgb 11.3 L Hct 32.9 L PFSH Medical History Allergic rhinitis (Unknown) Chicken pox Dizziness Hearing loss Hip pain (~1998) Hyperlipidemia Hypertension (~2016) Hypothyroidism (~1988) Insomnia, persistent (~2015) Low testosterone (~2009) Multiple myeloma in remission (~2013) Obstructive sleep apnea of adult (~2017) Ocular migraine (~1990) Osteoarthritis (~2018) Unilateral post-traumatic osteoarthritis, right knee (~2017) Urge incontinence (~2016) Vision disorder Surgical History Anesthesia Cataracts, bilateral History of autologous stem cell transplant (~2013) History of colonoscopy History of removal of Port-a-Cath (2010) Family History (Updated 05/13/19 @ 20:07 by Stefanie Giraldo) Father History of heart disease Mother Cancer Brother Brain tumor Parkinson's disease Grandmother No problems noted. Social History marital status: household members: spouse lives independently: Yes housing: house pets and animals: Yes (cats, dog) Smoking Status: Former smoker alcohol intake: current Discharge Assessment & Plan Assessment and Plan Assessment: Progressing as expected status post right total knee arthroplasty Plan of Treatment: Discharge home today in stable condition Discharge Plan Discharge Plan Patient Disposition: Home Discharge orders & Medications Discharge Orders: Discharge (Order); Ordered 06/30/21 Ordered By: Juan Hernández Prescriptions: New acetaminophen 325 mg Tablet 650 mg PO TID Qty: 60 0RF aspirin 81 mg Tablet,Delayed Release (Dr/Ec) 81 mg PO BID Qty: 60 0RF ibuprofen 400 mg Tablet 400 mg PO Q4HR Qty: 60 0RF oxycodone 5 mg Tablet 5 mg PO Q3HR PRN (Reason: Pain, Moderate (4-6)) Qty: 60 0RF Continued Fish Oil (#OMEGA 3) 1,000 mg PO QDAY Qty: 0 0RF levothyroxine 100 mcg tablet 100 mcg PO DAILY Qty: 90 3RF progesterone E4M 20 mg capsule 20 mg PO DAILY 0RF Label Comments: [facility] Rx Instructions: Take one cap by mouth nightly cholecalciferol (vitamin D3) 2,000 unit capsule 2,000 unit PO DAILY 0RF lorazepam 0.5 mg tablet 0.25 mg PO BEDTIME PRN (Reason: anxiety) Qty: 10 0RF Label Comments: Pt states not currently using lisinopril 2.5 mg tablet 2.5 mg PO DAILY Qty: 90 3RF melatonin 5 mg Capsule 5 mg PO BEDTIME 0RF coenzyme Q10 [CoQ-10] 100 mg Capsule 200 mg PO 2XW 0RF rosuvastatin 5 mg tablet 5 mg PO 2XW 0RF Discontinued acetaminophen 650 mg Tablet 650 mg PO QAM Qty: 0 0RF Follow up/Referrals: Sabrina King MD [Physician] - (2 weeks) Nicole Daily DO [Primary Care Provider] - Diet/Activity/Treatments Diet: Diet as Tolerated Activity: Weight-bearing as tolerated Cold/Heat Therapy: Apply ice to knee as needed Skin/Wound/Dressing Care Report to your healthcare provider any signs of infection, such as:: chills, fever, increased pain, unusual drainage and unusual redness Dressing: Keep dressing clean and dry Visit Report/Discharge Packet Instructions: DI for Knee Replacement Stand Alone Forms: Surgery Discharge Discharge Data Primary Care Provider: Nicole Daily Attending Provider: Sabrina King VTE Deep Vein Thrombosis/Pulmonary Embolism Present on Admission: No
== END 2021-06-30 11:45 | disposition home or self-care (01) ==
LOC: OR 11:51 → AC 11:54
PROVIDERS: Family Provider Family Medicine; PCP Family Medicine; Referring Provider Orthopaedic Surgery; Visit Provider Orthopaedic Surgery
PROC: 0SRC0JZ Replacement of Right Knee Joint with Synthetic Substitute, Open Approach (ICD-10-PCS; CPT 27447; principal; 2021-06-29 14:15)
DX: M17.11 Unilateral primary osteoarthritis, right knee (principal); I12.9 Hypertensive chronic kidney disease with stage 1 through stage 4 chronic kidney disease, or unspecified chronic kidney disease; N18.9 Chronic kidney disease, unspecified; G47.33 Obstructive sleep apnea (adult) (pediatric); E03.9 Hypothyroidism, unspecified
CPT/HCPCS: 27447; 73560; 85014; 85018; 97161; 97530; C1776; A9270; C9290; J0171; J0690; J2274; J2704; J3010

== ENCOUNTER → 2022-06-07 16:56 | Outpatient (CLI) | payer MEDICARE, SELFPAY ==
[2021-06-29 18:22] VITALS: BMI 26.7
[2022-06-07 21:33] LABS: Creatinine Urine Random 112.8 mg/dL
[2022-06-07 21:38] LABS: Microalbumi Creatinin Ratio Ur 43.4 ug/mg CR (<30); Microalbumin Urine Random 4.9 mg/dL (0-1.6)
== END ==
PROVIDERS: Family Provider Family Medicine; PCP Family Medicine; Visit Provider Family Medicine
DX: I10 Essential (primary) hypertension (principal)
CPT/HCPCS: 82043; 82570

== ENCOUNTER → 2022-09-21 10:36 | Outpatient (CLI) | payer MEDICARE, SELFPAY ==
[2021-06-29 18:22] VITALS: BMI 26.7
--- NOTE | 2022-09-21 11:02 | DI.MRI.S_ITS ---
PROCEDURE: MR BRAIN (IAC) WWO CON INDICATIONS: Sensorineural hearing loss, bilateral TECHNIQUE: Noncontrast sagittal T1 spin echo, axial FLAIR, axial gradient echo, axial diffusion and ADC through the brain. Axial thin-slice 3D CISS, coronal TruFISP, axial T1 spin echo with fat saturation through the internal auditory canals. After the administration of contrast, thin slice axial and coronal T1 spin echo with fat saturation through the internal auditory canals, and axial and coronal and sagittal T1 spin echo with fat saturation through the brain. COMPARISON: None. FINDINGS: Image quality: Excellent. Cerebellopontine angles: No cerebellopontine angle masses. Inner ear structures appear normally formed. No suspicious enhancement in the internal auditory canal or along the course of the 7th cranial nerve. CSF spaces: Ventricles are normal in size and shape. No extra-axial fluid collections. Basal cisterns are patent. Brain: No intracranial bleeds or mass effects. Duque-white matter interface is intact. No abnormal intracranial enhancement. Diffusion weighted images demonstrate no acute ischemic insults. Brainstem appears normal. Normal intravascular flow voids are present. Note is made of age-appropriate brain parenchymal volume loss and chronic small vessel ischemic changes. Skull and face: Calvarial marrow signal is normal. Orbits appear normal. Sinuses: Sinuses and mastoids are clear. IMPRESSION: No significant abnormality is seen for age. Specifically, no masses or abnormal enhancement are seen within the cerebellopontine angle cisterns or within the internal auditory canals. Dictated by: Sudeep Gómez M.D. on 09/21/2022 at 12:18 Approved by: Sudeep Gómez M.D. on 09/21/2022 at 12:20
== END ==
PROVIDERS: Family Provider Family Medicine; PCP Family Medicine; Referring Provider Otolaryngology; Visit Provider Otolaryngology
DX: H90.3 Sensorineural hearing loss, bilateral (principal); H55.09 Other forms of nystagmus; R42 Dizziness and giddiness
CPT/HCPCS: 70553; A9579

== ENCOUNTER → 2023-04-04 10:16 | Outpatient (CLI) | payer MEDICARE, SELFPAY ==
[2021-06-29 18:22] VITALS: BMI 26.7
[2023-04-04 17:59] LABS: Creatinine Urine Random 85.8 mg/dL
[2023-04-04 18:00] LABS: Microalbumi Creatinin Ratio Ur 27.9 ug/mg CR (<30); Microalbumin Urine Random 2.4 mg/dL (0-1.6)
== END ==
PROVIDERS: Family Provider Family Medicine; PCP Family Medicine; Visit Provider Family Medicine
DX: N39.0 Urinary tract infection, site not specified (principal); E78.5 Hyperlipidemia, unspecified; I10 Essential (primary) hypertension
CPT/HCPCS: 82043; 82570; 87077; 87086; 87186

== ENCOUNTER → 2023-06-19 09:41 | Outpatient (CLI) | payer MEDICARE, SELFPAY ==
[2021-06-29 18:22] VITALS: BMI 26.7
[2023-06-19 10:48] LABS: Add Manual Diff / Slide Review NO; Basophils Absolute Auto 0 /uL (0-100); Basophils Percent Auto 0.6 % (0-2); Eosinophils Absolute Auto 0 /uL (0-450); Eosinophils Percent Auto 0.7 % (2-4); Hematocrit 36.3 % (36-46); Hemoglobin 12.6 g/dL (12.0-16.0); Lymphocytes Absolute Auto 1100 /uL (1100-4500); Lymphocytes Percent Auto 18.9 % (25-40); Mean Corpuscular HGB Conc 34.6 % (30-36); Mean Corpuscular Hemoglobin 33.3 PG (26-34); Mean Corpuscular Volume 96.2 fL (80-100); Monocytes Absolute Auto 300 /uL (0-900); Monocytes Percent Auto 4.7 % (3-14); Neutrophils Absolute Auto 4300 /uL (1500-7000); Neutrophils Percent Auto 75.1 % (50-75); Platelet Count 232 X10^3/uL (150-400); Red Blood Cell Count 3.78 X10^6/uL (4.0-5.2); Red Cell Distribution Width 13.8 % (11.6-14.8); White Blood Cell Count 5.7 X10^3/uL (4.5-11.0)
[2023-06-19 10:58] LABS: Alanine Aminotransferase 17 IU/L (<35); Albumin 4.2 g/dL (3.5-5.0); Albumin Globulin Ratio 1.2 (1.0-2.8); Alkaline Phosphatase 62 U/L (38-126); Aspartate Aminotransferase 27 IU/L (14-36); BUN Creatinine Ratio 16.3 (6-22); Bilirubin Total 0.7 mg/dL (0.2-1.3); Blood Urea Nitrogen 13 mg/dL (7-17); Calcium 9.5 mg/dL (8.4-10.2); Carbon Dioxide 24 mmol/L (22-32); Chloride 100 mmol/L (98-107); Cholesterol 202 mg/dL (140-199); Estimated Glomerular Filt Rate > 60 mL/min (>60); Globulin 3.5 g/dL (1.7-4.1); Glucose 108 mg/dL (80-110); HDL Cholesterol 47 mg/dL (40-60); HEMOLYSIS < 15 (0-50); LDL Cholesterol Calculated 137 mg/dL (<100); Potassium 4.4 mmol/L (3.4-5.1); Sodium 131 mmol/L (137-145); Total Protein 7.7 g/dL (6.3-8.2); Triglycerides 91 mg/dL (35-150)
[2023-06-19 11:33] LABS: TSH w/ Reflex to FT4 1.29 uIU/mL (0.47-4.68)
== END ==
PROVIDERS: Family Provider Family Medicine; PCP Family Medicine; Referring Provider Family Medicine; Visit Provider Family Medicine
DX: I10 Essential (primary) hypertension (principal); E78.5 Hyperlipidemia, unspecified; E03.8 Other specified hypothyroidism; E78.2 Mixed hyperlipidemia; E06.3 Autoimmune thyroiditis
CPT/HCPCS: 36415; 80053; 80061; 84443; 85025; 86140

== ENCOUNTER → 2023-11-03 12:03 | Outpatient (CLI) | payer MEDICARE, SELFPAY ==
[2023-08-09 14:02] VITALS: BMI 26.7
--- NOTE | 2023-11-03 12:05 | DI.RAD.S_ITS ---
Bone Density Report Name: ABBEY GAGNON Age: 83 Sex: Female Ethnicity: White Date of : 1940 Indication: postmenopausal; screening for osteoporosis; Referring Provider: JULIANA MILLER Study: Bone densitometry was performed. Exam Date: November 03, 2023 Accession number: [id number] Bone Density: Region BMD T-score Z-score Classification AP Spine(L1-L4) 1.144 0.9 3.6 Normal Femoral Neck (Left) 0.900 0.5 2.8 Normal Total Hip (Left) 0.989 0.4 2.5 Normal Femoral Neck (Right) 0.861 0.1 2.5 Normal Total Hip (Right) 0.936 0.0 2.1 Normal Total Hip Mean 0.963 0.2 2.3 Normal World Health Organization criteria for BMD impression classify patients as: Normal (T-score at or above -1.0), Osteopenia (T-score between -1.0 and -2.5), or Osteoporosis (T-score at or below -2.5). 10-year Fracture Risk: FRAX not reported because: All T-scores for Spine Total, Hip Total, Femoral Neck at or above -1.0 Impression: The patient has normal bone mass. Discussion: LOW RISK OF FRACTURE; BONE DENSITY IS WELL ABOVE THE MINIMUM DESIRABLE LEVEL AND ABOVE AVERAGE FOR AGE AND SEX AT ALL SKELETAL SITES TESTED. This person's bone density is above expected limits for age and sex. This is rarely clinically significant, but should be pursued if there are significant musculoskeletal complaints. The patient should follow a healthful lifestyle (good nutrition with adequate calcium and vitamin D, and appropriate weight-bearing exercise). Follow-Up: Consider repeating this study in 5 years or sooner if there is some new clinical indication. Reported by: SUJEY FUENTES M.D. on 11/03/2023 2:43:00 PM.
== END ==
PROVIDERS: Family Provider Family Medicine; PCP Family Medicine; Referring Provider Family Medicine; Visit Provider Family Medicine
DX: N95.9 Unspecified menopausal and perimenopausal disorder (principal)
CPT/HCPCS: 77080